=== PATIENT | male | born 1970 | race Caucasian/White ===

== ENCOUNTER 2017-10-22 12:21 | Inpatient (IN) | payer OTHER ==
[~2017-10-22] VITALS: Ht 188 cm; Wt 81.6 kg
[2017-10-22] MEDS ORDERED: LOPERAMIDE HCL 2 MG CAPSULE PO PRN ×2 (22:45)
[2017-10-22] MEDS ORDERED: ACETAMINOPHEN 325 MG TABLET PO PRN (22:45)
[2017-10-22] MEDS ORDERED: MIRALAX 17 GM POWD.PACK PO PRN (22:45)
[2017-10-22] MEDS ORDERED: ONDANSETRON ODT 4 MG TAB.RAPDIS SL PRN (22:45)
[2017-10-22] MEDS ORDERED: IBUPROFEN 600 MG TABLET PO PRN (22:45)
[2017-10-22] MEDS ORDERED: diphenhydrAMINE 50 MG CAPSULE PO PRN (22:45)
[2017-10-22] MEDS ORDERED: LORAZEPAM 1 MG TABLET PO PRN ×2 (22:45)
[2017-10-22] MEDS ORDERED: MAGNESIUM HYDROXIDE 30 ML LIQUID UDC PO PRN (22:45)
[2017-10-22] MEDS ORDERED: ONDANSETRON 4 MG/2 ML VIAL IM PRN (22:45)
[2017-10-22] MEDS ORDERED: DICYCLOMINE HCL 20 MG TABLET PO PRN (22:45)
[2017-10-22] MEDS ORDERED: MAG HYDROX/AL HYDROX/SIMETH 30 ML LIQUID UDC PO PRN (22:45)
[2017-10-22] MEDS ORDERED: LORAZEPAM 2 MG/1 ML VIAL IM PRN (22:45)
[2017-10-22 23:50] LABS: *AMPHETAMINE, URINE POSITIVE (NEGATIVE); *BARBITURATE, URINE NEGATIVE (NEGATIVE); *CANNABINOID, URINE NEGATIVE (NEGATIVE); *COCCAINE, URINE NEGATIVE (NEGATIVE); *OPIATE, URINE NEGATIVE (NEGATIVE); *PHENCYCLIDINE SCREEN,URINE NEGATIVE (NEGATIVE)
[2017-10-23 00:20] LABS: BASOPHILS % (AUTO) 0.6 % (0.0-2.0); EOSINOPHILS # (AUTO) 0.1 K/uL (0.0-0.7); HEMATOCRIT 42.3 % (36.7-47.1); HEMOGLOBIN 14.7 g/dL (12.5-16.3); LYMPHOCYTES # (AUTO) 1.7 K/uL (20.0-40.0); LYMPHOCYTES % (AUTO) 23.4 % (20.5-51.5); MEAN CORPUSCULAR HEMOGLOBIN 34.5 uug (23.8-33.4); MEAN CORPUSCULAR HGB CONC 35 g/dL (32.5-36.3); MONOCYTES # (AUTO) 0.6 K/uL (2.0-10.0); NEUTROPHILS # (AUTO) 4.7 K/uL (1.8-8.9); PLATELET COUNT (AUTO) 287 K/uL (152-348); RED BLOOD CELL COUNT(AUTO) 4.27 MIL/uL (4.06-5.63); WHITE BLOOD COUNT (AUTO) 7.1 K/uL (3.6-10.2)
[2017-10-23 00:34] LABS: ALANINE AMINOTRANSFERASE 42 U/L (16-63); ALKALINE PHOSPHATASE 79 U/L (50-136); AMYLASE 51 U/L (25-115); ASPARTATE AMINOTRANSFERASE 55 U/L (15-37); BILIRUBIN,TOTAL 0.5 mg/dL (0.2-1.0); CARBON DIOXIDE 32 mmol/L (21-32); CHLORIDE 102 mmol/L (98-107); CREATININE 1.1 mg/dL (0.6-1.3); GLUCOSE 101 mg/dL (74-106); LIPASE 146 U/L (73-393); MAGNESIUM 1.9 mg/dL (1.8-2.4); POTASSIUM 3.9 mmol/L (3.5-5.1); TOTAL PROTEIN, SERUM 6.8 g/dL (6.4-8.2); UREA NITROGEN, BLOOD 13 mg/dL (7-18)
[2017-10-23 00:43] VITALS: BP 147/89
[2017-10-23 00:43] LABS: ETHANOL < 3 MG/DL (0-0); THYROID STIMULATING HORMONE 0.818 mIU/mL (0.358-3.740)
[2017-10-23] MEDS ORDERED: VALA100026 PO (02:52)
[2017-10-23] MEDS ORDERED: EMTR1TAB13 PO (02:52)
[2017-10-23] MEDS ORDERED: LIDO76.5 TP (02:52)
[2017-10-23] MEDS ORDERED: DEXL60CA3 PO (02:52)
[2017-10-23] MEDS ORDERED: UBID200C18 PO (02:52)
[2017-10-23] MEDS ORDERED: ATOR10TA PO (02:52)
[2017-10-23] MEDS ORDERED: OXAN10TA PO (02:52)
[2017-10-23] MEDS ORDERED: ANAS1TAB8 PO (02:52)
[2017-10-23] MEDS ORDERED: DARU1TAB PO (02:52)
[2017-10-23 04:28] VITALS: BP 137/84
[2017-10-23 08:00] VITALS: BP 158/110
[2017-10-23] MEDS: THIAMINE HCL 100 MG TABLET PO SCH (08:17)
[2017-10-23] MEDS: FOLIC ACID 1 MG TABLET PO SCH (08:17)
[2017-10-23] MEDS: MULTIVITAMINS,THERAPEUTIC TABLET PO SCH (08:18)
[2017-10-23] MEDS: CLONIDINE HCL 0.1 MG TABLET PO PRN ×2 (08:18→21:54)
[2017-10-23] MEDS ORDERED: TUBERCULIN,PURIF.PROT.DERIV. 5 TU/0.1 ML TEST ID ONE (09:00)
[2017-10-23 12:00] VITALS: BP 140/83
[2017-10-23] MEDS ORDERED: OXANDROLONE PO SCH (12:00)
[2017-10-23] MEDS: DESCOVY PO SCH (13:46)
[2017-10-23] MEDS: DEXILANT 60 MG PO SCH (13:46)
[2017-10-23] MEDS: VALACYCLOVIR 1 GM PO SCH ×2 (13:46→21:00)
[2017-10-23] MEDS: PREZCOBIX PO SCH (13:46)
[2017-10-23] MEDS: LORAZEPAM 1 MG TABLET PO SCH ×3 (13:47→21:54)
[2017-10-23] MEDS: ASPERCREME TOP PRN (13:48)
[2017-10-23] MEDS: ANASTROZOLE 1 MG TABLET PO SCH (15:15)
[2017-10-23 16:00] VITALS: BP 122/82
[2017-10-23 20:00] VITALS: BP 163/105
[2017-10-23] MEDS ORDERED: BENZOCAINE/MENTH/CETYLPYRD LOZENGE MM PRN (21:30)
[2017-10-23] MEDS: ATORVASTATIN 10 MG TABLET PO SCH (21:54)
[2017-10-23] MEDS ORDERED: SOMA6VIA SQ (22:14)
[2017-10-24] MEDS: DEXILANT 60 MG PO SCH (06:49)
[2017-10-24 08:00] VITALS: BP 159/114
[2017-10-24] MEDS ORDERED: ANASTROZOLE 1 MG TABLET PO SCH (09:00)
[2017-10-24] MEDS ORDERED: LORAZEPAM 1 MG TABLET PO SCH (09:00)
[2017-10-24] MEDS ORDERED: ATORVASTATIN 10 MG TABLET PO SCH (09:00)
[2017-10-24] MEDS: MULTIVITAMINS,THERAPEUTIC TABLET PO SCH (09:46)
[2017-10-24] MEDS: FOLIC ACID 1 MG TABLET PO SCH (09:46)
[2017-10-24] MEDS: THIAMINE HCL 100 MG TABLET PO SCH (09:46)
[2017-10-24] MEDS: VALACYCLOVIR 1 GM PO SCH ×2 (09:47→21:00)
[2017-10-24] MEDS: ANASTROZOLE 1 MG TABLET PO SCH (09:48)
[2017-10-24] MEDS: DESCOVY PO SCH (09:48)
[2017-10-24] MEDS: PREZCOBIX PO SCH (09:48)
[2017-10-24] MEDS: CO Q-10 PO SCH (09:49)
[2017-10-24] MEDS: CLONIDINE HCL 0.1 MG TABLET PO PRN (10:22)
[2017-10-24 11:31] VITALS: BP 148/88
[2017-10-24 12:00] VITALS: BP 156/98
[2017-10-24 13:11] LABS: HEPATITIS B SURFACE AG Negative (Negative)
[2017-10-24] MEDS ORDERED: LORAZEPAM 1 MG TABLET PO PRN ×2 (14:00)
[2017-10-24 20:00] VITALS: BP 144/96
[2017-10-24] MEDS ORDERED: testosterone cream (20:40)
[2017-10-24] MEDS: SOMATROPIN 6 MG SQ SCH (21:10)
[2017-10-24] MEDS: ATORVASTATIN 10 MG TABLET PO SCH (21:23)
[2017-10-24] MEDS ORDERED: TESTOSTERONE TOP SCH (22:15)
[2017-10-25] MEDS: ASPERCREME TOP PRN (00:40)
[2017-10-25] MEDS: DEXILANT 60 MG PO SCH (06:47)
[2017-10-25 08:00] VITALS: BP 155/100
[2017-10-25] MEDS ORDERED: LORAZEPAM 1 MG TABLET PO SCH (09:00)
[2017-10-25] MEDS: ANASTROZOLE 1 MG TABLET PO SCH (09:00)
[2017-10-25] MEDS: FOLIC ACID 1 MG TABLET PO SCH (09:17)
[2017-10-25] MEDS: THIAMINE HCL 100 MG TABLET PO SCH (09:17)
[2017-10-25] MEDS: MULTIVITAMINS,THERAPEUTIC TABLET PO SCH (09:17)
[2017-10-25] MEDS: CLONIDINE HCL 0.1 MG TABLET PO PRN (09:17)
[2017-10-25] MEDS: DESCOVY PO SCH (09:17)
[2017-10-25] MEDS: PREZCOBIX PO SCH (09:17)
[2017-10-25] MEDS: VALACYCLOVIR 1 GM PO SCH ×2 (09:18→21:00)
[2017-10-25] MEDS: CO Q-10 PO SCH (09:18)
[2017-10-25] MEDS ORDERED: TESTOSTERONE TOP SCH ×2 (09:29→09:32)
[2017-10-25 10:30] VITALS: BP 138/89
[2017-10-25 12:00] VITALS: BP 149/90
[2017-10-25 16:00] VITALS: BP 139/97
[2017-10-25] MEDS: SOMATROPIN 6 MG SQ SCH (20:48)
[2017-10-25] MEDS: ATORVASTATIN 10 MG TABLET PO SCH (20:48)
== END 2017-10-26 00:16 | disposition left against medical advice (07) | DRG 894 ==
LOC: SRC 21:14
PROVIDERS: ADMIT Internal Medicine; ATTEND Internal Medicine
PROC: HZ2ZZZZ Detoxification Services for Substance Abuse Treatment (ICD-10-PCS; principal; 2017-10-22)
PROC: HZ31ZZZ Individual Counseling for Substance Abuse Treatment, Behavioral (ICD-10-PCS; 2017-10-25)
DX: F10.230 Alcohol dependence with withdrawal, uncomplicated (principal); F15.23 Other stimulant dependence with withdrawal; Y90.9 Presence of alcohol in blood, level not specified; F43.10 Post-traumatic stress disorder, unspecified; F32.9 Major depressive disorder, single episode, unspecified; Z86.19 Personal history of other infectious and parasitic diseases
CPT/HCPCS: 36415; 70030-TC; 80307; 80324; 83690; 83735; 84443; 85025; 86592; 86705; 86803; 87340; G0480; Q0163